=== PATIENT | female | born 1960 | race Caucasian/White ===

== ENCOUNTER 2017-02-18 06:47 | Emergency (ER) | payer SELFPAY ==
[2017-02-18] MEDS ORDERED: Meclizine TAB* 12.5 MG PO ONE (07:37)
[2017-02-18] MEDS ORDERED: NS 0.9% 1000 ML* 1,000 ML IV ONE (07:37)
--- NOTE | 2017-02-18 08:37 | RAD ---
indication: Near syncope, chest pressure and dizziness COMPARISON: None A CT scan of the brain and c-spine was performed without intravenous contrast enhancement. Contiguous axial sections were obtained from the lung apices through the vertex. BRAIN: The ventricles, cisterns and sulci are within normal limits. No significant focal abnormality or mass effect is seen. The winkler-white differentiation is adequately maintained. There is no evidence for intracranial hemorrhage. No significant bony abnormality is present. The mastoid air cells are appropriately aerated. The visualized paranasal sinuses are clear. C-SPINE: On the sagittal view images there is mild reversal of the normal cervical lordosis. The vertebral bodies and facet joints are otherwise appropriately aligned. Multilevel degenerative changes include loss of intervertebral disc height with exuberant marginal osteophyte formation. Most severe degenerative changes are seen at C5/C6 and C6/C7. At these same levels there is uncovertebral hypertrophy best depicted on the coronal plane images. There is no prevertebral soft tissue swelling. There is no hyperdense material in the cervical canal to indicate hemorrhage. The visualized musculature and soft tissues are normal. There is no gross lymphadenopathy visualized. The visualized portion of the lung apices are clear. IMPRESSION: 1. Normal CT of the brain. 2. Degenerative changes of the cervical spine most severely affecting C5-C7.
[2017-02-18 09:18] LABS: Hematocrit 43 % (35-47); Hemoglobin 14.2 g/dl (12.0-16.0); Mean Corpuscular HGB Conc 33 g/dl (31-36); Mean Corpuscular Hemoglobin 32 pg (27-31); Mean Corpuscular Volume 96 fL (80-97); Mean Platelet Volume 8 um3 (7.4-10.4); Red Blood Count 4.47 10^6/ul (4.0-5.4); Red Cell Distribution Width 13 % (10.5-15); White Blood Count 6.3 10^3/ul (3.5-10.8)
[2017-02-18 09:26] LABS: Albumin 4.1 g/dL (3.2-5.2); BUN/Creatinine Ratio 13.9 (8-20); Calcium 9.3 mg/dL (8.6-10.3); EGFR Non-African American 83.2 (>60); Globulin 2.9 g/dL (2-4); Magnesium 2.1 mg/dL (1.9-2.7); Potassium 4.3 mmol/L (3.5-5.0); Total Bilirubin 0.4 mg/dL (0.2-1.0)
[2017-02-18 09:28] LABS: Troponin I 0.01 ng/mL (<0.04)
--- NOTE | 2017-02-18 09:44 | RAD ---
INDICATION: Chest pain COMPARISON: Most recent comparison chest x-rays dated March 19, 2009 TECHNIQUE: PA and lateral views of the chest were obtained. FINDINGS: The heart and mediastinum are normal in size and contour. The lungs are grossly clear. There is no evidence of large pleural effusion. Visualized bones are normal for the patient's age. There is no radiographic evidence of free air beneath the diaphragm IMPRESSION: No radiographic evidence of acute cardiopulmonary disease.
[2017-02-18 09:51] LABS: Urine Bacteria 1+ (Absent); Urine Bilirubin Negative (Negative); Urine Glucose Negative (Negative); Urine Nitrite Negative (Negative)
[2017-02-18 09:54] LABS: TSH (Thyroid Stimulating Horm) 3.34 mcIU/mL (0.34-5.60)
[2017-02-18 11:10] VITALS: BP 116/72
--- NOTE | 2017-02-18 18:52 | ED ---
Dwight Vicente Auryana, scribed for Sebas An MD on 02/18/17 at 0713 . HPI Chest Pain - HPI Summary HPI Summary: 56 year old female presents with dizziness starting 05:30 this morning. Patient reports that upon sitting up this morning she felt a spinning sensation and upon standing felt unsteady when walking. She also states diaphoresis, nausea, and neck tightness. Over the last few days she reports chest tightness with tenderness on palpation and asthma exacerbation (over the last week). She states that she is concerned about worsening chronic injuries in the neck. She denies any chest pain, or any numbness or tingling. She denies any recent ear infections, sinus infections, or any upper respiratory symptoms. She reports a similar episode multiple years ago. PMHx is significant for neck injuries (1994 ) with DDD, thyroid disease, and chronic back pain (Lidocaine patch). She denies any tobacco or alcohol use. FHx is significant for stroke. - History of Current Complaint Chief Complaint: EDChestPainROMI Time Seen by Provider: 02/18/17 07:09 Hx Obtained From: Patient Onset/Duration: Started Hours Ago, Still Present Time of Onset: 05:30 Timing: Constant Initial Severity: Mild Current Severity: Mild Pain Intensity: 3 Pain Scale Used: 0-10 Numeric Chest Pain Location: Diffuse - CHEST PRESSURE, NO PAIN Chest Pain Radiates: No Associated Signs and Symptoms: Positive: Dizziness, Diaphoresis, Nausea, Other: - NECK TIGHTNESS, CHEST TIGHTNESS AND TENDERNESS ON PALPATION, ASTHMA EXACERBATION, UNSTEADY GAIT. Negative: Numbness, Tingling Related History: Similar Episode/Dx as: - Allergy/Home Medications Allergies/Adverse Reactions: Allergies Allergy/AdvReac Type Severity Reaction Status Date / Time Ciprofloxacin [From Cipro] Allergy Diarrhea Verified 02/18/17 06:58 Nitrofurantoin Allergy Unknown Verified 02/18/17 06:58 [From Macrobid] Reaction Details Sulfa Antibiotics Allergy Unknown Verified 02/18/17 06:58 Reaction Details PMH/Surg Hx/FS Hx/Imm Hx Endocrine/Hematology History: Denies: Hx Diabetes Cardiovascular History: Denies: Hx Hypertension GI History: Reports: Hx Irritable Bowel - per pt History: Denies: Hx Renal Disease Musculoskeletal History: Reports: Hx Rheumatoid Arthritis - hx of arthritis Denies: Hx Osteoporosis Neurological History: Denies: Other Neuro Impairments/Disorders - Surgical History Surgery Procedure, Year, and Place: LITHOTRIPSY YRS AGO IN [place] HYSTERECTOMY - Immunization History Date of Tetanus Vaccine: unk Date of Influenza Vaccine: unk Infectious Disease History: No Infectious Disease History: Denies: Traveled Outside the [place] in Last 30 Days - Family History Known Family History: Positive: Diabetes, Other - Lung CA - Social History Alcohol Use: None Hx Substance Use: No Substance Use Type: Reports: None Hx Tobacco Use: Yes Smoking Status (MU): Former Smoker Review of Systems Positive: Skin Diaphoresis. Negative: Fever Eyes: Negative ENT: Negative Positive: Other - chest tightness/pressure with tenderness on palpation . Negative: Chest Pain Positive: Other - asthma exacerbation Positive: Nausea Genitourinary: Negative Positive: no symptoms reported Positive: Other - neck pain Skin: Negative Neurological: Other - dizziness and unsteady gait Negative: Paresthesia, Numbness Psychological: Normal All Other Systems Reviewed And Are Negative: Yes Physical Exam - Summary Physical Exam Summary: The patient is obese, in no acute distress and in no acute pain. The skin is warm and dry and skin color reflects adequate perfusion. HEENT: The head is normocephalic and atraumatic. The pupils are equal and reactive. Extraocular muscles are intact.. The conjunctivae are clear and without drainage. No horizontal nystagmus present. Nares are patent and without drainage. Mouth reveals moist mucous membranes and the throat is without erythema and exudate. The external ears are intact. The ear canals are patent and without drainage. The tympanic membranes are intact and without any effusions. Neck is supple with full range of motion, and muscular tenderness. There are no carotid bruits. There is no neck vein distension. Respiratory: Reproducible anterior chest wall pain. Lungs are clear to auscultation and breath sounds are symmetrical and equal. Cardiovascular: Heart is regular rate and rhythm. There is no murmur or rub auscultated. There is no peripheral edema and pulses are symmetrical and equal. Abdomen: The abdomen is soft and non-tender. There are normal bowel sounds heard in all four quadrants and there is no organomegaly palpated. Musculoskeletal: There is no back pain noted. Extremities are non-tender with full range of motion. There is good capillary refill. There is pitting edema in the bilateral lower extremities. There is no calf tenderness elicited. Neurological: Patient is alert and oriented to person, place and time. The patient has symmetrical motor strength in all four extremities. Cranial nerves are grossly intact. Deep tendon reflexes are symmetrical and equal in all four extremities. Psychiatric: The patient has an appropriate affect and does not exhibit any anxiety or depression. Triage Information Reviewed: Yes Vital Signs On Initial Exam: Initial Vitals Temp Pulse Resp BP Pulse Ox 99.0 F 75 16 108/53 98 02/18/17 06:48 02/18/17 06:48 02/18/17 06:48 02/18/17 06:48 02/18/17 06:48 Vital Signs Reviewed: Yes - Nathan Coma Scale Coma Scale Total: 15 Diagnostics - Vital Signs Vital Signs Temp Pulse Resp BP Pulse Ox 02/18/17 06:52 99 F 78 12 125/59 97 02/18/17 06:48 99.0 F 75 16 108/53 98 - Laboratory Lab Results: Lab Results 02/18/17 02/18/17 02/18/17 Range/Units 08:58 08:58 08:58 WBC 6.3 (3.5-10.8) 10^3/ul RBC 4.47 (4.0-5.4) 10^6/ul Hgb 14.2 (12.0-16.0) g/dl Hct 43 (35-47) % MCV 96 (80-97) fL MCH 32 H (27-31) pg MCHC 33 (31-36) g/dl RDW 13 (10.5-15) % Plt Count 228 (150-450) 10^3/ul MPV 8 (7.4-10.4) um3 Neut % (Auto) 76.1 (38-83) % Lymph % (Auto) 18.6 L (25-47) % [place] % (Auto) 4.6 (1-9) % Eos % (Auto) 0.3 (0-6) % Baso % (Auto) 0.4 (0-2) % Absolute Neuts (auto) 4.8 (1.5-7.7) 10^3/ul Absolute Lymphs (auto) 1.2 (1.0-4.8) 10^3/ul Absolute Monos (auto) 0.3 (0-0.8) 10^3/ul Absolute Eos (auto) 0 (0-0.6) 10^3/ul Absolute Basos (auto) 0 (0-0.2) 10^3/ul Absolute Nucleated RBC 0 10^3/ul Nucleated RBC % 0.1 Sodium 138 (133-145) mmol/L Potassium 4.3 (3.5-5.0) mmol/L Chloride 105 (101-111) mmol/L Carbon Dioxide 26 (22-32) mmol/L Anion Gap 7 (2-11) mmol/L BUN 10 (6-24) mg/dL Creatinine 0.72 (0.51-0.95) mg/dL Est GFR ( Amer) 107.0 (>60) Est GFR (Non-Af Amer) 83.2 (>60) BUN/Creatinine Ratio 13.9 (8-20) Glucose 106 H (70-100) mg/dL Lactic Acid 1.7 (0.5-2.0) mmol/L Calcium 9.3 (8.6-10.3) mg/dL Magnesium 2.1 (1.9-2.7) mg/dL Total Bilirubin 0.40 (0.2-1.0) mg/dL AST 24 (13-39) U/L ALT 33 (7-52) U/L Alkaline Phosphatase 80 (34-104) U/L Troponin I 0.01 (<0.04) ng/mL B-Natriuretic Peptide ( - 100) pg/mL Total Protein 7.0 (6.4-8.9) g/dL Albumin 4.1 (3.2-5.2) g/dL Globulin 2.9 (2-4) g/dL Albumin/Globulin Ratio 1.4 (1-3) TSH 3.34 (0.34-5.60) mcIU/mL Urine Color Urine Appearance Urine pH (5-9) Ur Specific [place] (1.010-1.030) Urine Protein (Negative) Urine Ketones (Negative) Urine Blood (Negative) Urine Nitrate (Negative) Urine Bilirubin (Negative) Urine Urobilinogen (Negative) Ur Leukocyte Esterase (Negative) Urine WBC (Auto) (Absent) Urine RBC (Auto) (Absent) Ur Squamous Epith Cells (Absent) Urine Bacteria (Absent) Urine Glucose (Negative) 02/18/17 02/18/17 Range/Units 08:58 09:15 WBC (3.5-10.8) 10^3/ul RBC (4.0-5.4) 10^6/ul Hgb (12.0-16.0) g/dl Hct (35-47) % MCV (80-97) fL MCH (27-31) pg MCHC (31-36) g/dl RDW (10.5-15) % Plt Count (150-450) 10^3/ul MPV (7.4-10.4) um3 Neut % (Auto) (38-83) % Lymph % (Auto) (25-47) % [place] % (Auto) (1-9) % Eos % (Auto) (0-6) % Baso % (Auto) (0-2) % Absolute Neuts (auto) (1.5-7.7) 10^3/ul Absolute Lymphs (auto) (1.0-4.8) 10^3/ul Absolute Monos (auto) (0-0.8) 10^3/ul Absolute Eos (auto) (0-0.6) 10^3/ul Absolute Basos (auto) (0-0.2) 10^3/ul Absolute Nucleated RBC 10^3/ul Nucleated RBC % Sodium (133-145) mmol/L Potassium (3.5-5.0) mmol/L Chloride (101-111) mmol/L Carbon Dioxide (22-32) mmol/L Anion Gap (2-11) mmol/L BUN (6-24) mg/dL Creatinine (0.51-0.95) mg/dL Est GFR ( Amer) (>60) Est GFR (Non-Af Amer) (>60) BUN/Creatinine Ratio (8-20) Glucose (70-100) mg/dL Lactic Acid (0.5-2.0) mmol/L Calcium (8.6-10.3) mg/dL Magnesium (1.9-2.7) mg/dL Total Bilirubin (0.2-1.0) mg/dL AST (13-39) U/L ALT (7-52) U/L Alkaline Phosphatase (34-104) U/L Troponin I (<0.04) ng/mL B-Natriuretic Peptide 43 ( - 100) pg/mL Total Protein (6.4-8.9) g/dL Albumin (3.2-5.2) g/dL Globulin (2-4) g/dL Albumin/Globulin Ratio (1-3) TSH (0.34-5.60) mcIU/mL Urine Color Yellow Urine Appearance Clear Urine pH 6.0 (5-9) Ur Specific [place] 1.006 L (1.010-1.030) Urine Protein Negative (Negative) Urine Ketones Negative (Negative) Urine Blood Negative (Negative) Urine Nitrate Negative (Negative) Urine Bilirubin Negative (Negative) Urine Urobilinogen Negative (Negative) Ur Leukocyte Esterase 1+ H (Negative) Urine WBC (Auto) Trace(0-5/hpf) (Absent) Urine RBC (Auto) Absent (Absent) Ur Squamous Epith Cells Present H (Absent) Urine Bacteria 1+ H (Absent) Urine Glucose Negative (Negative) Result Diagrams: 02/18/17 08:58 02/18/17 08:58 Lab Statement: Any lab studies that have been ordered have been reviewed, and results considered in the medical decision making process. - Radiology CXR Xray Interpretation: No Acute Changes Radiology Interpretation Completed By: Radiologist - CT CERVICAL CT Interpretation: Positive (See Comments) - 1. Normal CT of the brain. 2. Degenerative changes of the cervical spine most severely affecting C5-C7. CT Interpretation Completed By: Radiologist BRAIN CT Interpretation: Positive (See Comments) - IMPRESSION: 1. Normal CT of the brain. 2. Degenerative changes of the cervical spine most severely affecting C5- C7. CT Interpretation Completed By: Radiologist - EKG 06:52 EKG Interpretation: sinus rhythm @ 74 bpm, no STEMI, likely normal axis. Re-Evaluation - Re-Evaluation First Eval Re-Evaluation Time: 09:27 - discussed CT results Second Eval Re-Evaluation Time: 10:19 - discussed lab work and plan of action Chest Pain Course/Dx - Course Assessment/Plan: 56 year old female presents with dizziness starting 05:30 this morning. Patient reports that upon sitting up this morning she felt a spinning sensation and upon standing felt unsteady when walking. She also states diaphoresis, nausea, and neck tightness. Over the last few days she reports chest tightness with tenderness on palpation and asthma exacerbation (over the last week). She states that she is concerned about worsening chronic injuries in the neck. She denies any chest pain, or any numbness or tingling. She denies any recent ear infections, sinus infections, or any upper respiratory symptoms. She reports a similar episode multiple years ago. PMHx is significant for neck injuries (1993) with DDD, thyroid disease, and chronic back pain (Lidocaine patch). She denies any tobacco or alcohol use. FHx is significant for stroke. In ED course, the patient was given IV fluids and Meclizine. Imaging was ordered. CT CERVICAL spine is normal with Degenerative changes of the cervical spine most severely affecting C5-C7. CT BRAIN is normal with Degenerative changes of the cervical spine most severely affecting C5-C7. EKG shows sinus rhythm @ 74 bpm, no STEMI, likely normal axis. CXR is negative. Blood work shows glucose of 106, troponin 0.01, BNP 43, TSH 3.34. LFT are WNL. UA is contaminated 1+ leukocyte esterase, 1+ bacteria. On re-evaluation, imaging and blood work was discussed. Patient reports improvement of symptoms. The patient will be discharged home with follow up to her PCP. Recommended meclizine 25mg 4 times a day and to return to ED if her symptoms worsen or do not improve. Patient agrees with plan. Dx: vertigo. - Chest Pain Differential Diagnosis/HQI/PQRI: Other: - chest pain, cervical degenerative disc disease - Diagnoses Provider Diagnoses: Vertigo, Degenerative disc disease, cervical Discharge - Discharge Plan Condition: Stable Disposition: HOME Patient Education Materials: Vertigo (ED) Referrals: Nayeli Nascimento MD [Primary Care Provider] - 2 Days Additional Instructions: Recommend: Meclizine (Over the counter) 25mg 4 times a day. PLEASE RETURN TO THE ED IF YOUR SYMPTOMS WORSEN OR DO NOT IMPROVE. The documentation as recorded by the Dwight andrew Auryana accurately reflects the service I personally performed and the decisions made by , Sebas An MD.
== END 2017-02-18 11:05 | disposition home or self-care (01) ==
LOC: ED 06:47
DX: M50.30 Other cervical disc degeneration, unspecified cervical region (principal); R42 Dizziness and giddiness; R11.0 Nausea; J45.901 Unspecified asthma with (acute) exacerbation; Z87.891 Personal history of nicotine dependence
CPT/HCPCS: 36415; 70450; 71020; 72125; 80053; 81003; 81015; 83605; 83735; 83880; 84443; 84484; 85025; 87086; 93005; 99283; A9270-GY

== ENCOUNTER 2023-07-19 18:00 | Observation (INO) ==
[2023-07-19] MEDS ORDERED: NS 0.9% 1000 ml BAG 1,000 ML IV ONE ×2 (18:38→20:22)
[2023-07-19 19:38] LABS: ABS Lymphocytes 0.9 10^3/uL (1.0-4.8); ABS Monocytes 0.5 10^3/uL (0.0-0.9); ABS Neutrophils 7.1 10^3/uL (1.5-7.6); Eosinophil % 0.6 %; Hematocrit 42.8 % (35-45); Hemoglobin 14.3 g/dL (11.5-14.3); Lymphocyte % 10.8 %; Mean Corpuscular Hemoglobin 31.1 pg (27-33); Mean Corpuscular Hgb Conc 33.5 g/dL (31-36); Mean Platelet Volume 7.8 fL (7.5-11.2); Platelet Count 221 10^3/uL (150-450); Red Cell Distribution Width 14.3 % (12-17); White Blood Count 8.6 10^3/uL (3.8-11.8)
[2023-07-19 19:59] LABS: Calcium 9.4 mg/dL (8.6-10.3); Creatinine, Serum 0.65 mg/dL (0.51-0.95); Potassium 3.9 mmol/L (3.5-5.0); eGFR CKD-EPI 98.3 (>60)
[2023-07-19] MEDS ORDERED: Famotidine IV 10 MG/ML 2 ml VIAL (20 mg) IV SLOW PU ONE (20:17)
[2023-07-19 20:19] LABS: Albumin 4.3 g/dL (3.2-5.2); Albumin/Globulin Ratio 1.7 (1-3); Globulin 2.5 g/dL (2-4); Total Bilirubin 0.9 mg/dL (0.2-1.0); Total Protein 6.8 g/dL (6.4-8.9)
[2023-07-19] MEDS ORDERED: LORazepam 2 mg VIAL 1 ml IV PUSH ONE (20:32)
[2023-07-19] MEDS ORDERED: Lorazepam PYXIS KEY PRN (20:32)
[2023-07-19] MEDS ORDERED: Piperacillin/Tazobac 3.375 BAG 3.375 GM/100 ML BAG IV ONE (21:01)
[2023-07-19 21:25] LABS: INR 1.13 (0.83-1.13)
[2023-07-19 21:54] LABS: High Sensitivity Troponin 1 Hr 3 pg/mL (<15)
[2023-07-20] MEDS ORDERED: Lactated Ringers 1000 ml BAG 1,000 ML IV SCH ×2 (01:00→14:00)
[2023-07-20] MEDS ORDERED: Morphine 2 MG/ML SYRINGE IV PRN (04:36)
[2023-07-20] MEDS ORDERED: cefTRIAXone 1 gm/50 mL D5W 1 GM/50 ML BAG IV SCH ×2 (05:30→06:00)
[2023-07-20] MEDS: metroNIDAZOLE IV 500 MG/100ML 500 MG/100 ML BAG IVPB SCH ×3 (05:43→21:28)
[2023-07-20] MEDS: Enoxaparin 40 MG/0.4 ML SYR SUBCUT SCH ×2 (05:45→17:15)
[2023-07-20 07:58] LABS: ABS Eosinophils 0.2 10^3/uL (0.0-0.5); ABS Lymphocytes 1.1 10^3/uL (1.0-4.8); ABS Monocytes 0.4 10^3/uL (0.0-0.9); ABS Neutrophils 3.4 10^3/uL (1.5-7.6); ABS Nucleated RBC 0.01 10^3/ul; Eosinophil % 3.1 %; Hematocrit 38.5 % (35-45); Hemoglobin 12.9 g/dL (11.5-14.3); Lymphocyte % 21.3 %; Mean Corpuscular Hemoglobin 31.4 pg (27-33); Mean Corpuscular Hgb Conc 33.6 g/dL (31-36); Mean Corpuscular Volume 93.6 fL (80-97); Mean Platelet Volume 8.6 fL (7.5-11.2); Nucleated Red Blood Cells % 0.3 %/100WBC (0.0-0.8); Platelet Count 183 10^3/uL (150-450); Red Blood Count 4.11 10^6/uL (3.63-4.92); Red Cell Distribution Width 14.4 % (12-17); White Blood Count 5.1 10^3/uL (3.8-11.8)
[2023-07-20] MEDS: cefTRIAXone 1 gm/50 mL D5W 1 GM/50 ML BAG IV SCH (07:58)
[2023-07-20 08:22] LABS: ALT 272 U/L (7-52); Albumin 3.6 g/dL (3.2-5.2); Albumin/Globulin Ratio 1.6 (1-3); Alkaline Phosphatase 78 U/L (35-149); Blood Urea Nitrogen 14 mg/dL (6-24); CO2 Carbon Dioxide 22 mmol/L (22-32); Calcium 8.2 mg/dL (8.6-10.3); Chloride 109 mmol/L (101-111); Creatinine, Serum 0.61 mg/dL (0.51-0.95); Globulin 2.2 g/dL (2-4); Glucose 91 mg/dL (70-100); Sodium 141 mmol/L (135-145); Total Bilirubin 0.5 mg/dL (0.2-1.0); Total Protein 5.8 g/dL (6.4-8.9); eGFR CKD-EPI 99.8 (>60)
[2023-07-20 08:37] LABS: TSH Ultra Thyroid Stim Horm 2.63 mcIU/mL (0.34-5.60)
[2023-07-20] MEDS ORDERED: Dextran 70/Hypromellose Tears Eye Drops 15 ml BTL (for Artificials Tears) BOTH EYES PRN (10:56)
[2023-07-20] MEDS: Lactated Ringers 1000 ml BAG 1,000 ML IV SCH ×2 (12:07→23:16)
[2023-07-20 12:44] LABS: Anion Gap 10 mmol/L (2-16)
[2023-07-20 14:05] LABS: Potassium Redraw 3.8 mmol/L (3.5-5.0)
[2023-07-21] MEDS: Ondansetron 4 mg VIAL 2 MG/ML 2 ml VIAL IV PRN ×2 (02:57→12:48)
[2023-07-21] MEDS ORDERED: Buffered Lidocaine 1% SYRIN 1 ml INTRADERM ONE (06:00)
[2023-07-21] MEDS ORDERED: Scopolamine 1 mg/72hr PATCH TRANSDERM ONE (06:00)
[2023-07-21 06:53] LABS: Hematocrit 35.8 % (35-45); Hemoglobin 12.1 g/dL (11.5-14.3); Mean Corpuscular Hemoglobin 31.4 pg (27-33); Mean Corpuscular Hgb Conc 33.8 g/dL (31-36); Mean Platelet Volume 8.5 fL (7.5-11.2); Platelet Count 161 10^3/uL (150-450); Red Blood Count 3.85 10^6/uL (3.63-4.92); Red Cell Distribution Width 14.3 % (12-17)
[2023-07-21 07:19] LABS: Calcium 8.4 mg/dL (8.6-10.3); Creatinine, Serum 0.57 mg/dL (0.51-0.95); Potassium 3.4 mmol/L (3.5-5.0); eGFR CKD-EPI 101.4 (>60)
[2023-07-21] MEDS: metroNIDAZOLE IV 500 MG/100ML 500 MG/100 ML BAG IVPB SCH ×2 (07:35→14:34)
[2023-07-21] MEDS ORDERED: fentaNYL 250 mcg/5 ml 50 MCG/ML 5 ml VIAL (250 MCG) ONE (08:54)
[2023-07-21] MEDS ORDERED: Rocuronium 50 mg VIAL 10 mg/ml 5 ml VIAL (50 mg) ONE (08:54)
[2023-07-21] MEDS ORDERED: Lidocaine 2% PF 5 ML VIAL ONE (08:54)
[2023-07-21] MEDS ORDERED: Phenylephrine 40 mcg/mL 10mL (400mcg) SYRINGE ONE (08:54)
[2023-07-21] MEDS ORDERED: Dexamethasone IV 4 MG/ML VIAL 1 ml VIAL ONE (08:54)
[2023-07-21] MEDS ORDERED: Glycopyrrolate IV 0.2 MG/ML 1 ML VIAL ONE (08:54)
[2023-07-21] MEDS ORDERED: Propofol 10 MG/ML 20 ML BTL ONE (08:54)
[2023-07-21] MEDS ORDERED: Midazolam 2 mg/2 ml VIAL 1 mg/ml 2 ml VIAL (2 mg) ONE (08:54)
[2023-07-21] MEDS ORDERED: Ondansetron 4 mg VIAL 2 MG/ML 2 ml VIAL ONE ×2 (08:54→12:43)
[2023-07-21] MEDS ORDERED: Ondansetron 4 mg VIAL 2 MG/ML 2 ml VIAL IV PRN (09:24)
[2023-07-21] MEDS ORDERED: Metoclopramide 5 MG/ML VIAL (10 mg) IV PRN (09:24)
[2023-07-21] MEDS ORDERED: Naloxone 0.4 mg VIAL 0.4 mg/ml 1 ml VIAL IV PRN ×2 (09:24)
[2023-07-21] MEDS ORDERED: Scopolamine 1 mg/72hr PATCH ONE (09:29)
[2023-07-21] MEDS ORDERED: Bupivacaine 0.25% SDV 30 ML ONE (10:10)
[2023-07-21] MEDS ORDERED: ceFAZolin VIAL VIAL ONE (10:52)
[2023-07-21] MEDS ORDERED: metroNIDAZOLE IV 500 MG/100ML 500 MG/100 ML BAG ONE (10:55)
[2023-07-21] MEDS: fentaNYL 100 mcg/2 ml 50 MCG/ML VIAL IV PRN ×2 (13:08→13:18)
[2023-07-21] MEDS ORDERED: fentaNYL 100 mcg/2 ml 50 MCG/ML VIAL ONE (13:08)
[2023-07-21] MEDS: cefTRIAXone 1 gm/50 mL D5W 1 GM/50 ML BAG IV SCH (14:33)
[2023-07-21] MEDS ORDERED: Potassium Chlor 20 meq TAB.ER PO ONE (14:55)
[2023-07-21] MEDS: KCL 20 MEQ/100 ML IVPREMIX 20 MEQ/100 ML BAG IV SCH (15:06)
[2023-07-21 15:21] VITALS: BP 129/66
== END 2023-07-21 15:44 | disposition home or self-care (01) ==
LOC: ED 18:00 → EDHOLD 18:00 → SUATTDRO 07-20 02:22 → MED 07-20 03:57
PROVIDERS: ADMIT Internal Medicine; ATTEND Student in an Organized Health Care Education/Training Program

== ENCOUNTER 2024-03-28 15:35 | Observation (INO) ==
[2024-03-28 16:12] LABS: ABS Eosinophils 0.1 10^3/uL (0.0-0.5); ABS Lymphocytes 1.3 10^3/uL (1.0-4.8); ABS Monocytes 0.8 10^3/uL (0.0-0.9); ABS Neutrophils 12.8 10^3/uL (1.5-7.6); Eosinophil % 0.3 %; Hematocrit 42.8 % (35-45); Hemoglobin 14.6 g/dL (11.5-14.3); Lymphocyte % 8.8 %; Mean Corpuscular Hemoglobin 31.5 pg (27-33); Mean Corpuscular Volume 92.5 fL (80-97); Mean Platelet Volume 7.5 fL (7.5-11.2); Platelet Count 248 10^3/uL (150-450); Red Blood Count 4.63 10^6/uL (3.63-4.92); Red Cell Distribution Width 15.1 % (12-17)
[2024-03-28 16:15] LABS: Urine Appearance Clear; Urine Bilirubin Negative (Negative); Urine Blood 1+ (Negative); Urine Color Light-Yellow; Urine Glucose Negative (Negative); Urine Ketones Negative (Negative); Urine Nitrite Negative (Negative); Urine Protein Negative (Negative); Urine Urobilinogen Negative (Negative); Urine pH 6.5 (5.0-8.0)
[2024-03-28 16:26] LABS: Urine Bacteria 3+ /HPF (Absent); Urine Red Blood Cell 1+(3-5/hpf) /HPF (0-Trace); Urine Squamous Epithelial Cell Present /HPF (Absent); Urine White Blood Cell Trace(0-5/hpf) /HPF (0-Trace)
[2024-03-28 17:02] LABS: Albumin 4.6 g/dL (3.2-5.2); Albumin/Globulin Ratio 1.8 (1-3); C Reactive Protein 10.86 mg/L (<8.01); Calcium 9.7 mg/dL (8.6-10.3); Creatinine, Serum 0.71 mg/dL (0.51-0.95); Globulin 2.6 g/dL (2-4); Potassium 3.9 mmol/L (3.5-5.0); Total Bilirubin 0.6 mg/dL (0.2-1.0); Total Protein 7.2 g/dL (6.4-8.9); eGFR CKD-EPI 94.3 (>60)
[2024-03-28] MEDS: Acetaminophen IV 1 GM/100ML 1,000 MG/100 ML BAG IV ONE (17:03)
[2024-03-28] MEDS: Iohexol 300 (CONTRAST) 10 ML SDV IV ONE (17:12)
[2024-03-28] MEDS: Piperacillin/Tazobac 3.375 BAG 3.375 GM/100 ML BAG IV ONE (17:49)
[2024-03-28] MEDS ORDERED: Rocuronium 50 mg VIAL 10 mg/ml 5 ml VIAL (50 mg) ONE ×2 (18:11→20:12)
[2024-03-28] MEDS ORDERED: Lidocaine 2% PF 5 ML VIAL ONE (18:13)
[2024-03-28] MEDS ORDERED: Midazolam 2 mg/2 ml VIAL 1 mg/ml 2 ml VIAL (2 mg) ONE (18:13)
[2024-03-28] MEDS ORDERED: Propofol 10 MG/ML 20 ML BTL ONE ×2 (18:13→20:28)
[2024-03-28] MEDS ORDERED: fentaNYL 100 mcg/2 ml 50 MCG/ML VIAL ONE ×2 (18:13→20:01)
[2024-03-28] MEDS: Famotidine IV 10 MG/ML 2 ml VIAL (20 mg) IV SLOW PU ONE (18:27)
[2024-03-28] MEDS ORDERED: Lidocaine 1% w EPI 1:200,000 SDV 30 ML VIAL ONE (18:29)
[2024-03-28] MEDS ORDERED: Bupivacaine 0.5% SDV PF 30ML VIAL ONE (18:29)
[2024-03-28] MEDS ORDERED: Bupivacaine 0.25% EPI 200,000 30 ML SDV ONE (19:46)
[2024-03-28] MEDS ORDERED: Ondansetron 4 mg VIAL 2 MG/ML 2 ml VIAL ONE ×2 (20:07)
[2024-03-28] MEDS ORDERED: Dexamethasone IV 4 MG/ML VIAL 1 ml VIAL ONE (20:07)
[2024-03-28] MEDS ORDERED: Ondansetron 4 mg VIAL 2 MG/ML 2 ml VIAL IV PRN (20:43)
[2024-03-28] MEDS ORDERED: oxyCODONE/Acetamin 5/325 mg TAB PO PRN (20:43)
[2024-03-28] MEDS ORDERED: Naloxone 0.4 mg VIAL 0.4 mg/ml 1 ml VIAL IV PRN (20:51)
[2024-03-28] MEDS ORDERED: fentaNYL 100 mcg/2 ml 50 MCG/ML VIAL IV PRN (20:51)
[2024-03-29] MEDS: Piperacillin/Tazobac 3.375 BAG 3.375 GM/100 ML BAG IV SCH (02:07)
[2024-03-29 09:36] VITALS: BP 119/61
== END 2024-03-29 13:40 | disposition home or self-care (01) ==
LOC: ED 15:35 → OR 18:25 → INTOOBSV 18:26 → OR 18:39 → SSU 22:35
PROVIDERS: ADMIT Surgery; ATTEND Surgery